=== PATIENT | male | born 1950 | race Caucasian/White ===

== ENCOUNTER 2020-07-18 11:58 | Outpatient (CLI) | payer MEDICARE, SELFPAY ==
--- NOTE | ~2020-07-18 | XR_ITS ---
XR finger 5th LT min 2V DATE: 07/18/2020 12:27 INDICATION: Injury, pain TECHNIQUE: 4 views COMPARISON: None FINDINGS: There is osteoarthritic change and flexion deformity at the proximal interphalangeal joint. No fracture or dislocation, periosteal reaction or bone destruction. No subcutaneous emphysema or rad iopaque soft tissue foreign body is evident. 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 IMPRESSION: Osteoarthritis at the proximal interphalangeal joint of the fifth d igit
== END 2020-07-18 11:59 | disposition home or self-care (01) ==
PROVIDERS: PCP Family Medicine; Visit Provider Physician Assistant
DX: M19.042 Primary osteoarthritis, left hand (principal)
CPT/HCPCS: 73140

== ENCOUNTER 2021-11-11 00:19 | Day surgery (SDC) | payer MEDICARE, SELFPAY ==
[2021-11-06 11:12] VITALS: BMI 31.8
[2021-11-11 09:18] VITALS: BP 158/81; PULSE 97; RESP 22; TEMP 37.3; O2SAT 97
--- NOTE | 2021-11-11 09:22 | WPDANESEPPF ---
Anes - Initial Pre Proc Eval Procedure: Operation Date: 11/11/21 10:00 Proposed Procedures p Screening Colonoscopy - Damien Ribeiro MD Date/Time: 11/11/21 09:22 Surgeon: Damien Ribeiro MD Pre Op Diagnosis: family hx of colon polyps Patient Data Age: 71 Gender: M Height: 1.73 m Weight: 90.2 kg Last Vital Signs Temp 37.3 C 11/11/21 09:18 Pulse 97 11/11/21 09:18 Resp 22 H 11/11/21 09:18 BP 158/81 H 11/11/21 09:18 Pulse Ox 97 11/11/21 09:18 Allergies Allergy/AdvReac Type Severity Reaction Status Date / Time No Known Allergies Allergy Unknown Verified 11/11/21 09:16 Home Medications Medication Instructions Recorded Confirmed Type aspirin 81 mg tablet,delayed 81 mg PO DAILY 01/19/20 11/06/21 History release metformin 1,000 mg tablet 1,000 mg PO BID 01/19/20 11/06/21 History pen needle, diabetic 31 gauge x #90 each 01/19/20 03/08/21 Rx 01/01 oxybutynin chloride 15 mg 15 mg PO DAILY 07/18/20 11/06/21 History tablet,extended release 24 hr amlodipine 10 mg tablet 10 mg PO DAILY 08/03/20 11/06/21 History atorvastatin 20 mg tablet 10 mg PO QPM 08/03/20 11/06/21 History cholecalciferol (vitamin D3) 50 100 mcg PO DAILY 08/03/20 11/06/21 History mcg (2,000 unit) tablet lisinopril 40 mg tablet 40 mg PO DAILY 08/03/20 11/06/21 History metoprolol tartrate 25 mg tablet 12.5 mg PO BID tablet 08/03/20 11/06/21 History insulin glargine 100 unit/mL (3 28 unit SUB-Q QPM ml 03/08/21 11/06/21 History mL) subcutaneous pen clopidogrel 75 mg PO DAILY 11/06/21 11/06/21 History semaglutide 1 mg SUBCUT WEEKLY 11/06/21 11/06/21 History Patient hx anesthesia problems: none Family hx anesthesia problems: none Results Review: All pre-operative results and documents have been reviewed as part of the pre-operative evaluation. [facility] Past Medical History Medical History (Updated 11/11/21 @ 09:23 by Steven Linn MD) Essential (primary) hypertension Hepatitis C antibody test negative (03/07/17) History of prostate cancer Metabolic syndrome Mixed hyperlipidemia Obesity Type 2 diabetes mellitus with hyperglycemia Surgical History Surgical History (Reviewed 03/08/21 @ 10:16 by Vida Mark [facility] [address]) H/O cataract extraction H/O prostatectomy Family History Family History Other No family history of cardiovascular disease Social History Social History Smoking packs per day: 2 Smoking cigarettes per day: 40.0 Years smoked: 55 Smoking pack-years: 110.00 Smoking status: Former smoker Tobacco type: cigarettes Alcohol intake: current Substance use: never Substance use type: does not use Living arrangements: with family Spiritual care concerns: No Anes - Eval Final PreProcedure Day of Procedure 11/11/21 09:22 Patient weight: obese Heart: regular rate and rhythm Lungs: clear to auscultation and normal air movement Airway: Mallampati scale class II Neurological: alert and oriented Last oral intake: >/= 8 hours ASA classification: III Emergent: no Anesthetic plan: proceed Anesthesia type and monitoring: general GIVS Results Review: All pre-operative results and documents have been reviewed as part of the pre-operative evaluation. Informed Consent: The patient's anesthetic plan and its attendant risks and benefits were discussed with the patient/family/POA. Questions were solicited and answers provided to the satisfaction of the patient/family/POA.
[2021-11-11] MEDS: LACTATED RINGERS 1,000 ML 150 ML IV CONT (09:27)
--- NOTE | 2021-11-11 09:40 | WPDGICN ---
Assessment and Plan Assessment and plan (1) Family history of colonic polyps: Code(s): Z83.71 - Family history of colonic polyps Status: Acute Assessment and Plan: Patient has a family history that his brother had colon polyps. For this reason surveillance colonoscopy at 5 year intervals has been advised. (2) History of colon polyps: Code(s): Z86.010 - Personal history of colonic polyps Status: Acute Assessment and Plan: Patient was found to have benign adenomatous colon polyp removed from the colon 2014. He presents today for follow-up screening colonoscopy. GI Consult Note Consult date/time: 11/11/21 09:40 HPI: Gus Xie is a 71 year old male Presents for screening colonoscopy. Patient's current weight appetite and bowel movements are normal. he denies abdominal pain. He has had no bleeding. Family history is significant that his brother has had colon polyps. Patient himself had colon polyp removed from the colon at last colonoscopy 2014. He presents today for neoplasia screening. Review of Systems Review of Systems: All systems reviewed & are unremarkable except as noted in HPI and below PMFSH Past Medical History Medical History (Updated 11/11/21 @ 09:42 by Damien Ribeiro MD) Essential (primary) hypertension Hepatitis C antibody test negative (03/07/17) History of prostate cancer Metabolic syndrome Mixed hyperlipidemia Obesity Type 2 diabetes mellitus with hyperglycemia Surgical History Surgical History H/O cataract extraction H/O prostatectomy Family History Family History Other No family history of cardiovascular disease Social History Social History Smoking packs per day: 2 Smoking cigarettes per day: 40.0 Years smoked: 55 Smoking pack-years: 110.00 Smoking status: Former smoker Tobacco type: cigarettes Alcohol intake: current Substance use: never Substance use type: does not use Living arrangements: with family Spiritual care concerns: No Meds Home Medications and Allergies Home Medications Medication Instructions Recorded Confirmed Type aspirin 81 mg tablet,delayed 81 mg PO DAILY 01/19/20 11/06/21 History release metformin 1,000 mg tablet 1,000 mg PO BID 01/19/20 11/06/21 History pen needle, diabetic 31 gauge x #90 each 01/19/20 03/08/21 Rx / oxybutynin chloride 15 mg 15 mg PO DAILY 07/18/20 11/06/21 History tablet,extended release 24 hr amlodipine 10 mg tablet 10 mg PO DAILY 08/03/20 11/06/21 History atorvastatin 20 mg tablet 10 mg PO QPM 08/03/20 11/06/21 History cholecalciferol (vitamin D3) 50 100 mcg PO DAILY 08/03/20 11/06/21 History mcg (2,000 unit) tablet lisinopril 40 mg tablet 40 mg PO DAILY 08/03/20 11/06/21 History metoprolol tartrate 25 mg tablet 12.5 mg PO BID tablet 08/03/20 11/06/21 History insulin glargine 100 unit/mL (3 28 unit SUB-Q QPM ml 03/08/21 11/06/21 History mL) subcutaneous pen clopidogrel 75 mg PO DAILY 11/06/21 11/06/21 History semaglutide 1 mg SUBCUT WEEKLY 11/06/21 11/06/21 History Allergies Allergy/AdvReac Type Severity Reaction Status Date / Time No Known Allergies Allergy Unknown Verified 11/11/21 09:16 Vital Signs Vital Signs - 24 hr 11/11/21 09:18 Temperature 99.1 F Pulse Rate 97 Respiratory Rate 22 H Blood Pressure 158/81 H Pulse Oximetry 97 Exam Narrative: Physical exam reveals patient to be alert. Vital signs stable. HEENT exam is unremarkable. Patient is anicteric. Lungs are clear to auscultation and percussion. Heart is without murmur or extra sounds. Abdominal exam bowel sounds are present soft nontender with no hepatosplenomegaly. He has a moderate size umbilical hernia. That is reducible. Digital external rectal exam is normal.
[2021-11-11 09:53] LABS: Glucose Point of Care 320 mg/dl (65-105)
[2021-11-11 10:30] VITALS: BP 114/73; PULSE 95; RESP 20; O2SAT 99
--- NOTE | 2021-11-11 10:36 | SUR.PREOP ---
Dr douglas made aware of blood glucose- no new orders at this time.
[2021-11-11 10:40] VITALS: BP 115/75; PULSE 92; RESP 20; O2SAT 99
[2021-11-11 10:45] LABS: Glucose Point of Care 356 mg/dl (65-105)
--- NOTE | 2021-11-11 10:47 | SUR.PHASEII ---
DR PERRY INSTRUCTED PT TO RESUME PLAVIX TODAY. DR JORDAN NOTIFIED PT'S BLOOD SUGAR 356, NO NEW ORDERS RECEIVED, PT IS TO RESUME DIABETES REGIMEN/INSULIN AT HOME.
[2021-11-11 10:50] VITALS: BP 142/67; PULSE 90; RESP 18; O2SAT 100
== END 2021-11-11 11:12 | disposition home or self-care (01) ==
PROVIDERS: PCP Family Medicine; Visit Provider Internal Medicine Gastroenterology
PROC: 0DJD8ZZ Inspection of Lower Intestinal Tract, Via Natural or Artificial Opening Endoscopic (ICD-10-PCS; CPT 45378; principal; 2021-11-11 10:00)
DX: Z12.11 Encounter for screening for malignant neoplasm of colon (principal); Z83.71 Family history of colonic polyps; Z86.010 Personal history of colon polyps; K64.8 Other hemorrhoids; K57.30 Diverticulosis of large intestine without perforation or abscess without bleeding; I10 Essential (primary) hypertension; Z85.46 Personal history of malignant neoplasm of prostate; Z85.89 Personal history of malignant neoplasm of other organs and systems; E78.2 Mixed hyperlipidemia; E11.65 Type 2 diabetes mellitus with hyperglycemia; Z87.891 Personal history of nicotine dependence; Z79.82 Long term (current) use of aspirin; Z79.84 Long term (current) use of oral hypoglycemic drugs; Z79.4 Long term (current) use of insulin; E66.9 Obesity, unspecified; Z68.30 Body mass index [BMI] 30.0-30.9, adult
CPT/HCPCS: G0105; 82948; J2704; J7120

== ENCOUNTER 2024-01-04 08:07 | Outpatient (CLI) | payer MEDICARE, SELFPAY ==
--- NOTE | 2024-01-20 17:14 | WPDSLEEPSTUD ---
Sleep Study Date of Study: 01/04/24 Ordering Provider: Kim Leach DO Interpreting Physician: Kim Leach DO Sleep Study Type: Split Polysomnogram Height: 1.73 m Weight: 92.079 kg Body Mass Index: 30.9 Neck Circumference (inches): 17 [place]: 16 Reason for Sleep Study Previously diagnosed EDUARDO on CPAP. Quit using machine awhile ago. Wants to retry. Sleep History The patient is a 73-year-old male with hypertension, hyperlipidemia, type 2 diabetes, history of tobacco use and previously diagnosed sleep apnea that had a sleep study ordered to requalify for CPAP. The patient occasionally awakens from sleep short of breath. He rarely awakens at night with heartburn, belching or cough. He occasionally snores and it is occasionally loud enough that others complain. He frequently has trouble sleeping when he has a cold. He rarely wakes up gasping for air throughout the night. He occasionally has breathing problems at night observed by himself or others. He rarely sweats excessively at night. He rarely has heart palpitations or irregular heartbeats during the night. He frequently falls asleep during the day. He denies sleep paralysis, cataplexy and hypnagogic / hypnopompic hallucinations. He is occasionally afraid of going to sleep. He occasionally has nightmares. He occasionally remembers his dreams. He occasionally has thoughts racing through his mind. He rarely feels sad or depressed. He occasionally has anxiety. He occasionally has muscular tension. He frequently notices parts of his body jerk. He occasionally kicks during the night. He occasionally has crawling and aching feelings in his legs and occasionally has leg pain during the night. He denies grinding his teeth during sleep. He rarely awakens with morning jaw pain. He is occasionally bothered by pain during the day but rarely awakened by pain during the night. He occasionally wakes up feeling stiff in the morning. He occasionally wakes up with sore or achy muscles. He occasionally wakes up with pain in the neck, spine and other joints. He goes to bed between 11:00 p.m. to 12:00 a.m. on weekdays and between 11:00 p.m. to 1:00 a.m. on the weekends. It takes him 30 minutes to fall asleep. He wakes up 3-4 times throughout the night to urinate and is able fall back asleep within 10 minutes. He wakes up between 5-6 a.m. on both weekdays and weekends. He typically gets 4-6 hours of sleep per night. He will stay in bed for 30 minutes after waking up in the morning. He currently lives with his . He denies consuming any caffeinated beverages within 2 hours of bedtime. He will engage in physical exercise before bedtime. He will watch television before falling asleep. He will take naps in the afternoon or the evening but they are not refreshing. He consumes 32 oz of caffeinated beverage per day. He is a former smoker. He denies alcohol and recreational drug use. [facility] Past Medical History Medical History Essential (primary) hypertension Hepatitis C antibody test negative (03/07/17) History of prostate cancer Malignant neoplasm of prostate Metabolic syndrome Mixed hyperlipidemia Obesity Polyp of colon Type 2 diabetes mellitus with hyperglycemia Surgical History Surgical History H/O cataract extraction H/O prostatectomy Hx of right knee surgery Family History Family History Other No family history of cardiovascular disease Social History Social History Smoking packs per day: 2 Smoking cigarettes per day: 40.0 Years smoked: 55 Smoking pack-years: 110.00 Smoking status: Former smoker Tobacco type: cigarettes Alcohol intake: current Substance use: never Substance use type: does not use Lack of Tr
[2024-01-20 17:16] VITALS: BMI 30.9
== END 2024-01-05 07:44 | disposition home or self-care (01) ==
LOC: ANHCSM 08:08
PROVIDERS: PCP Family Medicine; Visit Provider Family Medicine
DX: G47.33 Obstructive sleep apnea (adult) (pediatric) (principal)
CPT/HCPCS: 95811